=== PATIENT | female | born 1950 | race Two or more races ===

== ENCOUNTER → 2024-01-17 | Outpatient (CLI) | payer MEDICARE, OTHER, SELFPAY ==
--- NOTE | 2024-01-17 11:18 | XR_ITS ---
Examination: CT abdomen and pelvis without contrast. Coronal 3-D reconstructions. Sagittal 2-D reconstructions. Date and time of exam:January 17, 2024 1225 hours INDICATIONS: Abdominal pain and pelvic pressure beginning 2 days ago, history kidney stones COMPARISON: November 14, 2016 CTDI: vol (mGy): 8.75 DLP: (mGycm): 525 Technique: Axial images of the abdomen have been obtained, 3 mm slice thickness Intravenous contrast material has not been administered. Low dose protocols were performed. One or more of the following dose reduction techniques were used; automated exposure control, adjustment of the mA and/or KV according to patient size, use of iterative reconstruction technique. Findings: Fluid distended esophagus Small retrocardiac gastric hernia No focal liver or splenic lesions No extra hepatic biliary tract stones No renal or ureteral calculi, minimal right hydronephrosis Aorta normal size Normal appendix No bowel obstruction Abundant stool in the rectum No adnexal mass 4 mm calculus either right ureterovesical junction or immediately within the bladder axial image 191 Mild thickening of the urinary bladder wall up to 3 mm Moderate osteopenia IMPRESSION: Mild bilateral renal parenchymal scar formation Normal right hydronephrosis 4 mm calculus either right ureterovesical junction or immediately within urinary bladder
[2024-01-17 13:56] LABS: Collection Type, Urine Clean Catch
[2024-01-17 14:23] LABS: Basophils # (Auto) 0.1 Thou/mm3 (0.0-0.2); Basophils % (Auto) 1 % (0-2.5); Eosinophils # (Auto) 0.2 Thou/mm3 (0.0-0.5); Eosinophils % (Auto) 2 % (0-10); Hematocrit 39.4 % (36.0-46.0); Hemoglobin 13.4 g/dL (12.0-16.0); Immature Granulocytes % (Auto) 0 % (0-0); Immature Granulocytes Auto 0.04 Thou/mm3 (0.00-0.00); Lymphocytes % (Auto) 35 % (10-50); Mean Corpuscular Hemoglobin 28.9 pg (25.0-35.0); Mean Corpuscular Volume 85 fL (80-100); Monocytes # (Auto) 0.7 Thou/mm3 (0.0-0.8); Monocytes % (Auto) 6 % (0-12); Neutrophils # (Auto) 6.4 Thou/mm3 (1.8-7.7); Neutrophils % (Auto) 56 % (37-80); Nucleated Red Blood Cell % 0 /100 WBC (0); Platelet Count 462 Thou/mm3 (140-440); RDW Standard Deviation 41.2 fL (36.4-46.3); Red Blood Count 4.63 Miln/mm3 (4.00-5.20); White Blood Count 11.5 Thou/mm3 (3.6-11.0)
[2024-01-17 14:35] LABS: Glucose Estimated Average 117 mg/dL (80-131); Hemoglobin A1C 5.7 % Hgb (4.8-6.0)
[2024-01-17 14:39] LABS: Bacteria,Urine Rare; Bilirubin,Urine Negative (Negative); Blood,Urine Negative (Negative); Clarity,Urine Clear (Clear/Hazy); Color,Urine Yellow (Lt Yel-Yel); Culture Indicated,Urine Not Indicated; Glucose, Urine Negative (Negative); Hyaline Casts,Urine < 1 /hpf (0-1); Ketones,Urine Negative (Negative); Leukocyte Esterase,Urine Negative (Negative); Nitrite,Urine Negative (Negative); Protein,Urine Trace (Neg - Trace); RBC,Urine 5 /hpf (0-3); Specific Gravity,Urine 1.013 (1.001-1.035); Squamous Epithelial Cell,Urine < 1 /hpf (0-5); Urobilinogen,Urine Negative mg/dL (0.0-1.0); WBC,Urine 8 /hpf (0-5)
[2024-01-17 14:41] LABS: Alanine Aminotransferase 37 U/L (10-49); Albumin, Serum 4.5 gm/dL (3.4-4.8); Alkaline Phosphatase 127 U/L (46-116); Anion Gap 9 (7-16); Aspartate Amino Transferase 25 U/L (0-34); BUN/Creatinine Ratio 15 Ratio (12-20); Bilirubin,Total 0.6 mg/dL (0.3-1.2); Blood Urea Nitrogen 15 mg/dL (9-23); Calcium 9.9 mg/dL (8.3-10.6); Calcium (Corrected) 9.9 mg/dL (8.5-10.1); Chloride 103 mMol/L (98-107); Globulin 2.3 gm/dL (2.3-3.5); Glucose 102 mg/dL (74-106); Osmolality,Calculated 280 (275-295); Potassium 3.5 mMol/L (3.4-5.1); Sodium 140 mMol/L (136-145); Total Protein 6.8 gm/dL (5.7-8.2); eGFR 59 See Note
== END | disposition home or self-care (01) ==
LOC: CCTX 11:08 → COPL 12:49
PROVIDERS: PCP Family Medicine; Referring Provider Internal Medicine; Visit Provider Radiology Diagnostic Radiology
DX: N28.89 Other specified disorders of kidney and ureter (principal); N13.2 Hydronephrosis with renal and ureteral calculous obstruction; I10 Essential (primary) hypertension; R10.84 Generalized abdominal pain; E03.9 Hypothyroidism, unspecified; R10.2 Pelvic and perineal pain
CPT/HCPCS: 36415; 74176; 80053; 81001; 83036; 85025

== ENCOUNTER → 2024-05-07 | Outpatient (CLI) | payer MEDICARE, OTHER, SELFPAY ==
--- NOTE | 2024-05-07 10:36 | XR_ITS ---
Examination: CT abdomen without intravenous contrast. Coronal 2-D reconstructions. Sagittal 2-D reconstructions. Date and time of exam:May 07, 2024 1055 hours INDICATIONS: Right upper abdominal pain right lower abdominal pain beginning 2 weeks ago, history kidney stones CTDI: vol (mGy): 8.99 DLP: (mGycm): 299 Technique: Axial images of the abdomen have been obtained, 3 mm slice thickness, without intravenous contrast 2-D sagittal coronal reconstructions Low dose protocols were performed. One or more of the following dose reduction techniques were used; automated exposure control, adjustment of the mA and/or KV according to patient size, use of iterative reconstruction technique. Findings: No focal liver or splenic lesions Gallbladder not visualized Common hepatic duct 8 mm No pancreatic mass No adrenal mass Mild bilateral renal parenchymal scar formation No hydronephrosis Aorta normal size No bowel obstruction No pericecal inflammatory change IMPRESSION: Mild bilateral renal parenchymal scar formation No renal or ureteral calculi, no hydronephrosis
[2024-05-07 11:40] LABS: Collection Type, Urine Clean Catch
[2024-05-07 12:19] LABS: Basophils # (Auto) 0.1 Thou/mm3 (0.0-0.2); Basophils % (Auto) 1 % (0-2.5); Eosinophils # (Auto) 0.2 Thou/mm3 (0.0-0.5); Eosinophils % (Auto) 2 % (0-10); Hematocrit 37.9 % (36.0-46.0); Hemoglobin 12.9 g/dL (12.0-16.0); Immature Granulocytes % (Auto) 0 % (0-0); Immature Granulocytes Auto 0.05 Thou/mm3 (0.00-0.00); Lymphocytes # (Auto) 4.4 Thou/mm3 (1.0-4.8); Lymphocytes % (Auto) 39 % (10-50); Mean Corpuscular Volume 85 fL (80-100); Monocytes # (Auto) 0.9 Thou/mm3 (0.0-0.8); Monocytes % (Auto) 8 % (0-12); Neutrophils # (Auto) 5.7 Thou/mm3 (1.8-7.7); Neutrophils % (Auto) 51 % (37-80); Nucleated Red Blood Cell % 0 /100 WBC (0); Platelet Count 474 Thou/mm3 (140-440); RDW Standard Deviation 41.6 fL (36.4-46.3); Red Blood Count 4.45 Miln/mm3 (4.00-5.20); White Blood Count 11.3 Thou/mm3 (3.6-11.0)
[2024-05-07 12:52] LABS: Bacteria,Urine Rare; Bilirubin,Urine Negative (Negative); Blood,Urine Negative (Negative); Calcium Oxalate Crystals,Urine 4+; Clarity,Urine Turbid (Clear/Hazy); Color,Urine Drk-Yellow (Lt Yel-Yel); Culture Indicated,Urine Not Indicated; Glucose, Urine Negative (Negative); Hyaline Casts,Urine < 1 /hpf (0-1); Ketones,Urine Trace (Negative); Leukocyte Esterase,Urine Negative (Negative); Nitrite,Urine Negative (Negative); Protein,Urine 1+ (Neg - Trace); RBC,Urine 10 /hpf (0-3); Specific Gravity,Urine 1.032 (1.001-1.035); Squamous Epithelial Cell,Urine 1 /hpf (0-5); WBC,Urine 2 /hpf (0-5)
[2024-05-07 12:55] LABS: Alanine Aminotransferase 30 U/L (10-49); Albumin, Serum 4.3 gm/dL (3.4-4.8); Albumin/Globulin Ratio 1.7 (1.2-2.2); Alkaline Phosphatase 118 U/L (46-116); Anion Gap 9 (7-16); Aspartate Amino Transferase 25 U/L (0-34); BUN/Creatinine Ratio 17 Ratio (12-20); Bilirubin,Total 0.3 mg/dL (0.3-1.2); Blood Urea Nitrogen 12 mg/dL (9-23); Calcium 9.8 mg/dL (8.3-10.6); Calcium (Corrected) 9.8 mg/dL (8.5-10.1); Chloride 106 mMol/L (98-107); Creatinine (Component) 0.7 mg/dL (0.6-1.3); Globulin 2.6 gm/dL (2.3-3.5); Glucose 109 mg/dL (74-106); Osmolality,Calculated 285 (275-295); Potassium 3.5 mMol/L (3.4-5.1); Sodium 143 mMol/L (136-145); Total Protein 6.9 gm/dL (5.7-8.2); eGFR > 60 See Note
== END | disposition home or self-care (01) ==
LOC: CCTX 10:21 → COPL 11:12
PROVIDERS: PCP Internal Medicine; Referring Provider Internal Medicine; Visit Provider Internal Medicine
DX: N28.89 Other specified disorders of kidney and ureter (principal); R10.31 Right lower quadrant pain; Z87.442 Personal history of urinary calculi
CPT/HCPCS: 36415; 74150; 80053; 81001; 85025

== ENCOUNTER → 2024-05-15 | Outpatient (CLI) | payer MEDICARE, OTHER, SELFPAY ==
--- NOTE | 2024-05-15 13:44 | XR_ITS ---
Examination: Lumbar spine, 5 views Technique: Lumbar spine AP, lateral, coned lateral lower lumbar spine, bilateral obliques 5 views Exam date and time: March 17, 2024, 1358 hrs. Indications: Low back pain beginning 3 weeks ago. Findings: Moderate osteopenia Moderate diffuse facet arthropathy. No lumbar fracture. Mild disc narrowing posteriorly L5-S1. Mild lumbar spondylosis. Impression: Mild degenerative disc disease L5-S1.
--- NOTE | 2024-05-15 13:44 | XR_ITS ---
Examination: Thoracic spine 3 views Technique: AP, lateral, coned lateral upper dorsal spine 3 views Date and time: May 15, 2024 at 1409 hrs. Indications: Upper back pain beginning 3 weeks ago. Findings: Significant osteopenia. No acute thoracic fracture. Mild diffuse thoracic disc narrowing. No pulmonary obstruction Impression: Mild thoracic degenerative disc disease
[2024-05-15 14:17] LABS: Collection Type, Urine Clean Catch
[2024-05-15 16:09] LABS: Bilirubin,Urine Negative (Negative); Blood,Urine Negative (Negative); Calcium Oxalate Crystals,Urine 4+; Color,Urine Drk-Yellow (Lt Yel-Yel); Glucose, Urine Negative (Negative); Ketones,Urine Trace (Negative); Leukocyte Esterase,Urine Negative (Negative); Nitrite,Urine Negative (Negative); Protein,Urine 1+ (Neg - Trace); RBC,Urine 11 /hpf (0-3); Specific Gravity,Urine 1.031 (1.001-1.035); Squamous Epithelial Cell,Urine < 1 /hpf (0-5); Uric Acid Crystals,Urine 3+; WBC,Urine 6 /hpf (0-5)
[2024-05-15 16:34] LABS: Clarity,Urine Turbid (Clear/Hazy)
== END | disposition home or self-care (01) ==
PROVIDERS: PCP Internal Medicine; Referring Provider Internal Medicine; Visit Provider Internal Medicine
DX: M51.34 Other intervertebral disc degeneration, thoracic region (principal); M51.379 Other intervertebral disc degeneration, lumbosacral region without mention of lumbar back pain or lower extremity pain
CPT/HCPCS: 72072; 72110; 81001; 87086

== ENCOUNTER → 2024-05-20 | Outpatient (CLI) | payer MEDICARE, OTHER, SELFPAY ==
[2024-05-20 12:24] LABS: Basophils # (Auto) 0.1 Thou/mm3 (0.0-0.2); Basophils % (Auto) 1 % (0-2.5); Eosinophils # (Auto) 0.2 Thou/mm3 (0.0-0.5); Eosinophils % (Auto) 2 % (0-10); Hematocrit 38.7 % (36.0-46.0); Hemoglobin 12.9 g/dL (12.0-16.0); Immature Granulocytes % (Auto) 0 % (0-0); Immature Granulocytes Auto 0.04 Thou/mm3 (0.00-0.00); Lymphocytes % (Auto) 36 % (10-50); Mean Corpuscular HGB Conc 33.3 g/dl (31.0-37.0); Mean Corpuscular Hemoglobin 28.9 pg (25.0-35.0); Mean Corpuscular Volume 87 fL (80-100); Monocytes # (Auto) 0.8 Thou/mm3 (0.0-0.8); Monocytes % (Auto) 7 % (0-12); Neutrophils # (Auto) 6.2 Thou/mm3 (1.8-7.7); Neutrophils % (Auto) 54 % (37-80); Nucleated Red Blood Cell % 0 /100 WBC (0); Platelet Count 467 Thou/mm3 (140-440); RDW Standard Deviation 41.9 fL (36.4-46.3); Red Blood Count 4.46 Miln/mm3 (4.00-5.20); White Blood Count 11.3 Thou/mm3 (3.6-11.0)
[2024-05-20 12:55] LABS: Alanine Aminotransferase 35 U/L (10-49); Albumin, Serum 4.3 gm/dL (3.4-4.8); Albumin/Globulin Ratio 1.9 (1.2-2.2); Alkaline Phosphatase 107 U/L (46-116); Amylase 86 U/L (30-118); Anion Gap 9 (7-16); Aspartate Amino Transferase 26 U/L (0-34); BUN/Creatinine Ratio 13 Ratio (12-20); Bilirubin,Total 0.4 mg/dL (0.3-1.2); Blood Urea Nitrogen 10 mg/dL (9-23); Calcium 10.1 mg/dL (8.3-10.6); Calcium (Corrected) 10.1 mg/dL (8.5-10.1); Carbon Dioxide 28.8 mMol/L (20.0-31.0); Chloride 103 mMol/L (98-107); Creatine Kinase 207 U/L (34-171); Creatinine (Component) 0.8 mg/dL (0.6-1.3); Globulin 2.3 gm/dL (2.3-3.5); Glucose 105 mg/dL (74-106); LDH (Lactate Dehydrogenase) 173 U/L (120-246); Lipase 33 U/L (12-53); Osmolality,Calculated 280 (275-295); Potassium 4.5 mMol/L (3.4-5.1); Sodium 141 mMol/L (136-145); Thyroid Stimulating Hormone 0.06 uIU/mL (0.55-4.78); Total Protein 6.6 gm/dL (5.7-8.2); eGFR > 60 See Note
== END | disposition home or self-care (01) ==
LOC: COPL 11:32
PROVIDERS: PCP Internal Medicine; Referring Provider Internal Medicine; Visit Provider Internal Medicine
DX: E03.9 Hypothyroidism, unspecified (principal); K21.9 Gastro-esophageal reflux disease without esophagitis; R10.84 Generalized abdominal pain
CPT/HCPCS: 36415; 80053; 82150; 82550; 83615; 83690; 84443; 85025

== ENCOUNTER 2025-01-10 15:04 | Emergency (ER) | payer MEDICARE, OTHER, SELFPAY ==
[2025-01-10 15:06] VITALS: PULSE 88; RESP 18; O2SAT 98; BMI 34.3
[2025-01-10 15:13] VITALS: BP 119/70; PULSE 72; RESP 18; TEMP 36.8; O2SAT 98
--- NOTE | 2025-01-10 15:19 | EKG_ITS ---
[facility] Test Date: 2025-01-10 Pat Name: NADINE JACKSON Department: Room: - Gender: Female [employer]ing [employer] Tender: : 1950 Requested By: Roberta Cheatham Order Number: [id number] Reading MD: Roberta Cheatham Measurements Intervals [place] Rate: 72 P: 80 HI: 191 QRS: -5 QRSD: 85 T: 50 QT: 369 QTc: 406 Interpretive Statements SINUS RHYTHM MINIMAL VOLTAGE CRITERIA FOR LVH, CONSIDER NORMAL VARIANT [MEETS CRITERIA IN ONE OF: R(aVL), S(V1), R(V5), R(V5/V6)+S(V1)] Compared to ECG 12/12/2022 20:09:03 T-wave abnormality no longer present /store/S0/[id number]/ecg/[id number].pdf
--- NOTE | 2025-01-10 15:24 | PD.EDFALL ---
ED Fall Injury RME/HPI General Chief Complaint: Fall Stated Complaint: FALL Time Seen by Provider: 01/10/25 15:18 Arrival date/time: 01/10/25 15:04 RME / HPI RME / HPI Narrative: Patient is a 74-year-old female with a past medical history of hypertension, hypothyroidism, GERD, Depression who presented to the emergency room via ambulance with chief complain of mechanical fall secondary to tripping on garbage can lid outside. Patient denied dizziness prior to fall. Denied loss of consiouness. Denied chest pain or shortness of breath. Patient denied seizure like activity. Denied head trauma. When patine fell, landed on knees bilaterally. Denied anticoagulations. Related Data Home Medications ?Medication ?Instructions ?Recorded ?Confirmed amlodipine 5 mg tablet (Norvasc) 5 mg PO QDAY #0 tabs 09/26/03/23/20 levothyroxine 88 mcg tablet 88 mcg PO QDAY #0 tabs 02/15/15 03/23/20 paroxetine HCl 20 mg tablet 20 mg PO QDAY 03/22/20 03/23/20 Previous Rx's ?Medication ?Instructions ?Recorded ibuprofen 600 mg tablet 600 mg PO Q8H PRN pain #30 tabs 04/19/20 pantoprazole 20 mg tablet,delayed 20 mg PO QDAY #20 tabs 12/12/22 release (Protonix) sucralfate 1 gram tablet (Carafate) 1 g PO BID #14 tabs 12/12/22 hydrocodone 5 mg-acetaminophen 300 1 tab PO QDAY PRN pain 3 days #3 01/10/25 mg tablet tabs Allergies Allergy/AdvReac Type Severity Reaction Status Date / Time No Known Allergies Allergy Verified 04/19/20 11:34 Review of Systems Review of Systems Narrative Review of Systems: General appearance: NO weight change, NO fatigue, NO weakness, NO fever, NO chills, NO night sweats, No cough, Mechanical Fall Skin: NO rash, NO itching, NO sores, NO moles HEENT: NO Trauma, NO nausea, NO vomiting, NO visual changes, NO blurry vision, NO double vision, NO tinnitus, NO vertigo, NO ear discharge, NO rhinorrhea, NO stuffiness, NO sneezing, NO allergy, NO epistaxis. NO Hoarseness, NO sore throat, NO swollen neck. Cardiac: NO Palpitations, NO dyspnea on exertion, NO orthopnea, NO paroxysmal nocturnal dyspnea, NO edema Respiratory: NO Shortness of Breath, NO Wheezing, NO Cough, NO Sputum, NO hemoptysis GI:NO appetite, NO nausea, NO vomiting, NO dysphagia, NO changes in bowel frequency, NO stool color, NO diarrhea, NO constipation, NO hemetemesis, NO hemorrhoids, NO melena, NO hematechezia, NO abdominal pain, NO jaundice Renal: NO frequency, NO hesitancy, NO urgency, NO hematuria, NO nocturia, NO incontinence MSK: NO muscle weakness, NO gout, NO arthritis, NO muscle stiffness Neuro: NO headaches, NO tremors, NO weakness, NO paralysis, NO seizures, NO loss of consciousness, NO numbness. Hem: NO anemia, NO easy bruising/bleeding, NO petechiae, NO purpura Endo: NO heat/cold intolerance, NO excessive sweating, NO polyuria, NO polydipsia, NO polyphagia, NO thyroid problems, NO diabetes Pysch: NO mood, NO anxiety, NO depression ED Exam Narrative Physical exam: General Appearance: Alert & Oriented X3, well-nourished female who is lying in bed in bed, mild distress secondary to bilateral knee pain. HEENT: Skull symmetrical and atraumatic. Conjunctivae pin and moist. Pupils equal, round, reactive to light and accommodation (PERRL). External ear without lesion or discharge. Straight, nares patient, mucosa pink, no discharge. Cardio: Normal Rate and Rhythm with S1 and S2 heart sounds. No murmurs or extra heart sounds auscultated. No bruits on carotid auscultation. No peripheral edema or cyanosis. Lungs: Symmetric with good expansion. Chest and back non-tender. Breath sounds vesicular without crackles, wheezing or rhonchi Abdomen: Non-tender, Non-distended, Normal Reactive Bowel Sounds Neuro: Alert, cooperative, oriented to person, place, and time. Speech clear. CN grossly intact. Upper motor strength 5/5 and Lower motor strength 5/5. Sensation intact. Course Quality Measures none Orders Category Date Time Status [facility] Q4H START 00 Care 01/10/25 15:25 Active Continuous Pulse Oximetry NOW Care 01/10/25 15:25 Completed Orthostatic Vitals X1 Care 01/10/25 15:19 Active Straight [In and Out Catheter] X1 Care 01/10/25 15:53 Active XR chest 1V portable Stat Exams 01/10/25 15:26 Taken XR femur BI min 2V Stat Exams 01/10/25 15:50 Taken XR tibia fibula BI 2V Stat Exams 01/10/25 15:52 Taken Alcohol, Urine Stat Lab 01/10/25 16:40 Completed CBC Stat Lab 01/10/25 15:45 Completed CMP [Comprehensive Metabolic Panel] Stat Lab 01/10/25 15:45 Completed Drug Screen,Urine Stat Lab 01/10/25 16:40 Completed Free T3 Stat Lab 01/10/25 15:45 Completed Free T4 (Free Thyroxine) Stat Lab 01/10/25 15:45 Completed Magnesium Stat Lab 01/10/25 15:45 Completed TSH [Thyroid Stimulating Hormone] Stat Lab 01/10/25 15:45 Completed Troponin I Stat Lab 01/10/25 15:45 Completed Urinalysis, C/S if Indicated Stat Lab 01/10/25 16:40 Completed Morphine* Inj Med 01/10/25 15:31 Discontinued 2 mg IVP Q1H ONE EKG (RT) Stat RT 01/10/25 15:19 Draft Vital Signs Vital signs: Vital Signs Temperature 98.2 F 01/10/25 15:13 Pulse Rate 72 01/10/25 15:13 Respiratory Rate 18 01/10/25 15:13 Blood Pressure 119/70 01/10/25 15:13 Pulse Oximetry (%) 98 01/10/25 15:13 Oxygen Delivery Method Room Air 01/10/25 15:13 Fall Patient data External records reviewed:: [facility] previous records and EMS form Clinical information provided by:: patient Social determinants that could affect healthcare access:: none Patient has the following chronic illnesses:: HTN Hypothyroidism How is presenting disease/condition affected by chronic disease/condition?: uneffected by (by chronic disease ) Evaluation data The following diagnostics were reviewed and interpreted by me:: lab results, radiology exam(s) and EKG tracing(s) Lab and/or radiology exams considered but not ordered:: None Interpretation Summary: Patient is a 74-year-old female with a past medical history of hypertension hypothyroidism GERD and depression who presented to the emergency room with bilateral knee pain and hip pain after experiencing mechanical fall. CBC showed mild leukocytosis 11.5 likely reactive CMP-electrolytes within normal limit and TSH 0.07 with free T4 at 1.6 likely 7 clinical hypothyroidiss. UA negative Chest x-ray: no rib fractures noted Femur x-ray and Fibial/Fibula negative for any acute processes - The patient's plan was discussed with attending Dr. Elizabeth Cheatham MD PGY2 Internal Medicine Medications / Prescriptions Medications or Prescriptions considered but not ordered:: none Medication administrations:: Medication Administration History Discontinued Medications Morphine Sulfate (Morphine Sulf Inj 4 Mg/Ml Vial) 2 mg IVP Q1H ONE Stop: 01/10/25 15:32 Last Admin: 01/10/25 16:36 Dose: Not Given Documented By: JT Non-Admin Reason: Patient Refused same as above Consultations Consultation(s) initiated? (list below): No Diagnosis Fall Differential Diagnosis: syncope, concussion without loss of consciousness and other (mechanical fall ) Most likely diagnosis given after review of the tests above:: Mechanical fall ground level fall secondary to tripping on an object in patient's yard. No electrolyte abnormalities. Subclinical hypothyroidism noted please, follow up with primary care provider. EKG within normal limits. No cardiac arrythmias noted on EKG. No acute fractures noted on images of femur x-ray and tibia/Fibula. Admission Indicated Admission indicated?: not indicated Explain why admission is indicated or not indicated:: No acute fractures, no admission indicated. Admission Request Was there a request for admission?: No Disposition Plan Disposition Plan: Discharge Discharge Attestation Discharge Attestation: The patient and all family members were given an opportunity to ask questions and understood the discharge instructions. Discharge instructions specifically effects, indications for sooner follow up or return to the emergency department, and the expected course of current diagnosis. Patient condition: Stable Discharge Plan Plan Patient Disposition: HOME (Self Care) Patient condition on transfer: Stable Health Concerns: Instructions: -You experienced a mechanical ground level fall no fractures noted on images -Hydrocodone-Acetaminophen 5-300 mg once daily as needed for pain, please follow up with your primary care provider. --Please follow up with your primary care provider within one week of discharge -If your symptoms worsen,please seek immediate medical attention and return to your nearest emergency room -If you do not have a primary care provider, you may follow up at the [facility] at [address], [place] [address], Prescriptions/Referrals Prescriptions/Med Rec: New hydrocodone-acetaminophen 5-300 mg tablet 1 tab PO QDAY MDD 1 tablet PRN (Reason: pain) 3 Days Qty: 3 0RF Continued amlodipine [Norvasc] 5 MG tablet 5 mg PO QDAY Qty: 0 levothyroxine 88 mcg Tablet 88 mcg PO QDAY Qty: 0 paroxetine HCl 20 mg Tablet 20 mg PO QDAY ibuprofen 600 mg tablet 600 mg PO Q8H PRN (Reason: pain) Qty: 30 0RF pantoprazole [Protonix] 20 mg tablet,delayed release (DR/EC) 20 mg PO QDAY Qty: 20 0RF sucralfate [Carafate] 1 gram tablet 1 g PO BID Qty: 14 0RF Discontinued rabeprazole [AcipHex] 20 MG tablet,delayed release (DR/EC) 20 mg PO QAM Qty: 0 cephalexin 500 mg capsule 500 mg PO TID Qty: 15 0RF cephalexin 500 mg capsule 500 mg PO TID Qty: 21 0RF Referrals: Brian Valencia MD [Primary Care Provider, Family Practice] - In 1 week Problem List Clinical Impression: Accident due to mechanical fall without injury Patient/Caregiver Discharge Instructions Print Language: Slovak Stand Alone Forms: Kayla Award Info., Patient Portal Info Letter
--- NOTE | 2025-01-10 15:26 | XR_ITS ---
EXAMINATION: AP chest single view TECHNIQUE: AP portable semiupright chest single view Date and time: January 10, 2025, 1551 hours, comparison July 23, 2021 INDICATIONS: Chest pain today after falling. FINDINGS: Mild prominence left ventricle Ectatic thoracic aorta. No pneumothorax or pulmonary contusion. Clavicles ribs appear intact IMPRESSION: No pneumothorax or pulmonary contusion
[2025-01-10 15:42] VITALS: PULSE 76
--- NOTE | 2025-01-10 15:50 | XR_ITS ---
EXAMINATION: Bilateral femur 4 views TECHNIQUE: AP lateral right and left femur 4 views Date and time: January 10, 2025, 1554 hours INDICATIONS: Patient fell today with injury to the right and left femur, bilateral femur pain. FINDINGS: No acute right or left hip fracture Shafts of the right and left femur appear intact IMPRESSION: No acute fracture
--- NOTE | 2025-01-10 15:52 | XR_ITS ---
EXAMINATION: Right and left tibia fibula 4 views TECHNIQUE: AP lateral right and left tibia fibula 4 views Date and time: January 10, 2025, 1555 hours INDICATIONS: Patient fell today with injury to both lower legs, lower leg pain. FINDINGS: No acute fracture. No dislocation No foreign body IMPRESSION: No fracture or dislocation
[2025-01-10 16:03] LABS: Basophils # (Auto) 0.1 Thou/mm3 (0.0-0.2); Basophils % (Auto) 1 % (0-2.5); Eosinophils # (Auto) 0.2 Thou/mm3 (0.0-0.5); Eosinophils % (Auto) 2 % (0-10); Hematocrit 38.6 % (36.0-46.0); Hemoglobin 13.0 g/dL (12.0-16.0); Immature Granulocytes Auto 0.03 Thou/mm3 (0.00-0.00); Lymphocytes # (Auto) 3.7 Thou/mm3 (1.0-4.8); Lymphocytes % (Auto) 32 % (10-50); Mean Corpuscular HGB Conc 33.7 g/dl (31.0-37.0); Mean Corpuscular Hemoglobin 28.8 pg (25.0-35.0); Mean Corpuscular Volume 86 fL (80-100); Monocytes # (Auto) 0.8 Thou/mm3 (0.0-0.8); Monocytes % (Auto) 7 % (0-12); Neutrophils # (Auto) 6.8 Thou/mm3 (1.8-7.7); Neutrophils % (Auto) 59 % (37-80); Nucleated Red Blood Cell # 0.00 Thou/mm3 (0.00-0.00); Nucleated Red Blood Cell % 0 /100 WBC (0); Platelet Count 441 Thou/mm3 (140-440); RDW Standard Deviation 41.7 fL (36.4-46.3); Red Blood Count 4.51 Miln/mm3 (4.00-5.20); White Blood Count 11.5 Thou/mm3 (3.6-11.0)
[2025-01-10 16:27] LABS: Alanine Aminotransferase 21 U/L (10-49); Albumin, Serum 4.6 gm/dL (3.4-4.8); Albumin/Globulin Ratio 2.3 (1.2-2.2); Alkaline Phosphatase 109 U/L (46-116); Anion Gap 8 (7-16); Aspartate Amino Transferase 18 U/L (0-34); BUN/Creatinine Ratio 13 Ratio (12-20); Bilirubin,Total 0.3 mg/dL (0.3-1.2); Blood Urea Nitrogen 10 mg/dL (9-23); Calcium 9.7 mg/dL (8.3-10.6); Calcium (Corrected) 9.7 mg/dL (8.5-10.1); Carbon Dioxide 27.3 mMol/L (20.0-31.0); Chloride 106 mMol/L (98-107); Creatinine (Component) 0.8 mg/dL (0.6-1.3); Estimated Creatinine Clearance 54.4 mL/min (>60); Globulin 2.0 gm/dL (2.3-3.5); Glucose 146 mg/dL (74-106); Magnesium 1.9 mg/dL (1.6-2.6); Osmolality,Calculated 283 (275-295); Potassium 3.4 mMol/L (3.4-5.1); Sodium 141 mMol/L (136-145); Thyroid Stimulating Hormone 0.07 uIU/mL (0.55-4.78); Total Protein 6.6 gm/dL (5.7-8.2); Troponin I < 0.020 ng/mL (0.0-0.045); eGFR > 60 See Note
[2025-01-10 16:56] LABS: Collection Type, Urine Clean Catch; WBC,Urine 0 /hpf (0-5)
[2025-01-10 17:13] LABS: Alcohol, Urine Negative (Negative); Amphetamine/Methamp Scrn,U Negative (Negative); Barbiturate Screen,Urine Negative (Negative); Benzodiazepines Screen,Urine Negative (Negative); Benzoylecgonine Screen, Ur Negative (Negative); Fentanyl Screen,Urine Negative (Negative); Opiate Screen,Urine Negative (Negative); THC Screen,Urine Negative (Negative)
[2025-01-10 17:18] LABS: Free T3 2.8 pg/mL (2.3-4.2); Free T4 (Free Thyroxine) 1.62 ng/dL (0.89-1.76)
[2025-01-10 17:24] VITALS: BP 150/53; PULSE 71; RESP 16; TEMP 36.3; O2SAT 97
[2025-01-10 17:30] LABS: Bacteria,Urine Rare; Bilirubin,Urine Negative (Negative); Blood,Urine Negative (Negative); Clarity,Urine Clear (Clear/Hazy); Color,Urine Lt-Yellow (Lt Yel-Yel); Culture Indicated,Urine Not Indicated; Glucose, Urine Negative (Negative); Ketones,Urine Negative (Negative); Leukocyte Esterase,Urine Negative (Negative); Nitrite,Urine Negative (Negative); PH,Urine 6.5 (5.0-7.0); Protein,Urine Negative (Neg - Trace); RBC,Urine < 1 /hpf (0-3); Specific Gravity,Urine 1.007 (1.001-1.035); Squamous Epithelial Cell,Urine < 1 /hpf (0-5); Urobilinogen,Urine Negative mg/dL (0.0-1.0)
[2025-01-10 18:30] VITALS: BP 138/59; PULSE 78; RESP 17; TEMP 36.8; O2SAT 98
--- NOTE | 2025-01-10 19:03 | PRELIM_ITS ---
Radiograph of the chest (single view). January 10, 2025 1548 hours Clinical history: rib pain Comparison: None Findings: The lungs are clear. There is no pleural effusion or pneumothorax. The cardiomediastinal silhouette is normal. There is no evidence of rib fracture. The osseous structures are intact. Impression: No radiographic evidence of thoracic injury. Report Electronically Signed By: Maverick Joy 01/10/2025 7:02:25 PM [EST]
--- NOTE | 2025-01-10 19:39 | PRELIM_ITS ---
Radiographs of bilateral tibia and fibula (2 views) January 10, 2025 1553 hours Clinical history: Injury Comparison: None Findings: There is a linear horizontal sclerotic lucency in the distal tibia. There is no evidence of dislocation. Bone density and configuration are normal. The soft tissues are unremarkable. Impression: A linear horizontal sclerotic lucency in the distal tibia, which may represent a stress fracture. Recommend clinical correlation. Report Electronically Signed By: Maverick Joy 01/10/2025 7:38:34 PM [EST]
--- NOTE | 2025-01-10 19:54 | PRELIM_ITS ---
Radiographs of both femurs (2 views). January 10, 2025 1553 hours Clinical history: Injury Comparison: None Findings: There is no evidence of fracture or dislocation. No focal or diffuse bony abnormality is identified. Calcific densities are seen in the pelvis, likely representing phleboliths. Impression: No fracture or dislocation. Report Electronically Signed By: Maverick Joy 01/10/2025 7:53:31 PM [EST]
== END 2025-01-10 18:30 | disposition home or self-care (01) ==
PROVIDERS: Emergency Provider Emergency Medicine; PCP Family Medicine
DX: M25.561 Pain in right knee (principal); M25.562 Pain in left knee; W01.0XXA Fall on same level from slipping, tripping and stumbling without subsequent striking against object, initial encounter
CPT/HCPCS: 36415; 71045; 73552; 73590; 80053; 80307; 80320; 81001; 83735; 84439; 84443; 84481; 84484; 84703; 85025; 93005; 99284; G0480

== ENCOUNTER 2025-02-07 14:13 | Emergency (ER) | payer MEDICARE, OTHER, SELFPAY ==
[2025-02-07 14:31] VITALS: BP 135/69; PULSE 70; RESP 18; TEMP 36.9; O2SAT 100
--- NOTE | 2025-02-07 14:51 | XR_ITS ---
Examination: CT chest, without intravenous contrast. Sagittal and coronal 2-D reconstructions. Exam date and time: February 07, 2025, 1538 hours INDICATIONS: Patient fell a couple weeks ago with injury of the chest with back pain CTDI:vol (mGy) 11.3 DLP: (mGycm) 385 Technique: Multiple 3.0 mm axial sections of the chest to been obtained. Bone and lung density settings are obtained. Sagittal and coronal 2-D reconstructions have been obtained. Low dose protocols were performed. One or more of the following dose reduction techniques were used; automated exposure control, adjustment of the mA and/or KV according to patient size, use of iterative reconstruction technique. Findings: Thoracic aorta pulmonary arteries intact No hemopericardium No pneumothorax pulmonary contusion or hemothorax Severe osteopenia Sternal segments appear intact Thoracic vertebral bodies intact no compression fractures in satisfactory alignment posterior spinous processes No acute rib fractures Clavicles appear intact No visualized liver or splenic or renal laceration IMPRESSION: Thoracic aorta pulmonary arteries intact No hemopericardium, pneumothorax, pulmonary contusion or hemothorax Osseous structures including the thoracic vertebral bodies appear intact
[2025-02-07] MEDS: LIDOCAINE 5% 1 PATCH 2 PATCH TOP (15:05)
--- NOTE | 2025-02-07 15:13 | PD.EDFALL ---
ED Fall Injury RME/HPI General Chief Complaint: Fall Stated Complaint: Right rib pain X 3 weeks, worse today Time Seen by Provider: 02/07/25 14:50 Arrival date/time: 02/07/25 14:13 RME / HPI RME / HPI Narrative: See MDM for Dr. Johnson's HPI Documentation. Related Data Home Medications ?Medication ?Instructions ?Recorded ?Confirmed amlodipine 5 mg tablet (Norvasc) 5 mg PO QDAY #0 tabs 09/26/13 03/23/20 levothyroxine 88 mcg tablet 88 mcg PO QDAY #0 tabs 02/15/15 03/23/20 paroxetine HCl 20 mg tablet 20 mg PO QDAY 03/22/20 03/23/20 Previous Rx's ?Medication ?Instructions ?Recorded ibuprofen 600 mg tablet 600 mg PO Q8H PRN pain #30 tabs 04/19/20 pantoprazole 20 mg tablet,delayed 20 mg PO QDAY #20 tabs 12/12/22 release (Protonix) sucralfate 1 gram tablet (Carafate) 1 g PO BID #14 tabs 12/12/22 Allergies Allergy/AdvReac Type Severity Reaction Status Date / Time No Known Allergies Allergy Verified 02/07/25 14:20 Review of Systems Review of Systems Systems Reviewed: All systems reviewed, normal except as documented Past Medical History Past Medical History NEUROLOGIC: Positive Neurological Disorders and Head Trauma CARDIAC: Positive Cardiac Disorders, Hypercholesterolemia and Hypertension GASTROINTESTINAL: Positive Gastrointestinal Disorders, Hepatitis, Gall Bladder Disease, Gastroesophageal Reflux Disease and Obesity GENITOURINARY: Positive Genitourinary Disorders and Kidney Stones REPRODUCTIVE: Positive Previous Pregnancies MUSCULOSKELETAL: Positive Musculoskeletal Disorders and Arthritis ENT: Positive Deafness and Head Trauma ENDOCRINE: Positive Endocrine Disorders and Hypothyroidism PSYCHO/SOCIAL: Positive Psychiatric Problems, Depression and Anxiety OTHER HISTORY: Positive Shingles, Anesthesia Reactions, Chicken Pox, Measles and Mumps Family History FAMILY HISTORY: Positive Family Cancer and Family Surgery Surgical History SURGICAL: Positive Thyroidectomy, Hysterectomy, Tubal Ligation and Section Social History SMOKING STATUS: Never smoker SUBSTANCE USE: does not use ALCOHOL: Never ED Exam Narrative Physical exam: See MDM for Dr. Johnson's HPI Documentation. Course Quality Measures none Orders Category Date Time Status CT chest wo con Stat Exams 02/07/25 14:51 Completed Lidocaine 5% Patch Med 02/07/25 14:50 Discontinued 2 patch TOP X1 ONE Vital Signs Vital signs: Vital Signs Temperature 98.4 F 02/07/25 14:31 Pulse Rate 70 02/07/25 14:31 Respiratory Rate 18 02/07/25 14:31 Blood Pressure 135/69 H 02/07/25 14:31 Pulse Oximetry (%) 100 02/07/25 14:31 Oxygen Delivery Method Room Air 02/07/25 14:31 Fall MDM Narrative MDM Narrative:: This section includes all my notes and documentations, including HPI, PE, and ED course. Bob Johnson MD HPI: 75-year-old female here with continued right-sided chest pain after falling several days ago. No shortness of breath. No other complaints. ROS: All negative except as documented in HPI. Physical Exam: General: Alert and oriented. No acute distress. Eyes: Conjunctivae and lids clear. EOMI. PERRL. ENT: No signs of head trauma. Neck: Supple. No tenderness. Heart: RRR. Lungs: No respiratory distress. Good air movement. No rhonchi, wheezing, rales. Chest: Tenderness of the right sided ribs laterally with palpation. Abdomen: Soft and nontender. Normal bowel sounds. No distension. No rebound or guarding. Back: No tenderness. Skin: Warm and dry. Neuro: Alert and oriented X 3. Cranial Nerves II-XII grossly intact. No peripheral motor deficits. Musculoskeletal: All major joints and bones are not tender with no limited ROM. I reviewed all diagnostic test results: My review of the chest CT report is NAD. At this point, diagnoses include: Rib contusion Treatment here included: Lidocaine patches She started to feel better. Recommended supportive care. Based on my best medical judgment, made decision no further evaluation or treatment indicated at this time. Patient understands and agrees to the discharge instructions customized and printed, see below. Discharge instructions from Dr. Johnson: -- Unfortunately, you sustained right rib contusions. -- It's going to take a couple of months to heal. -- Try to slowly resume your normal activity despite the pain. Prolonged inactivity is terrible for your body. -- Apply heat throughout the day as much as possible to help promote blood flow needed for healing. -- Ibuprofen and Tylenol and topical lidocaine patches as needed. -- Try propping herself up on pillows. -- Despite the pain, take at least two very deep breaths every hour you are awake.? To keep your lungs inflated. -- See your private doctor next week if not significantly better. -- Seek immediate medical care with intolerable pain, fever, shortness of breath, or with any concerns. Bob Johnson MD Patient data External records reviewed:: [facility] previous records Clinical information provided by:: patient Social determinants that could affect healthcare access:: none Patient has the following chronic illnesses:: Hypertension, hypercholesterolemia, GERD, kidney Stones, arthritis, hypothyroidism, thyroidectomy, hysterectomy, tubal ligation, and section. How is presenting disease/condition affected by chronic disease/condition?: exacerbated by Evaluation data The following diagnostics were reviewed and interpreted by me:: lab results and radiology exam(s) Lab and/or radiology exams considered but not ordered:: none Interpretation Summary: I reviewed all diagnostic test results: My review of the chest CT report is NAD. Medications / Prescriptions Medications or Prescriptions considered but not ordered:: none Medication administrations:: Medication Administration History Discontinued Medications Lidocaine (Lidocaine 5% 1 Patch) 2 patch TOP X1 ONE Stop: 02/07/25 14:51 Last Admin: 02/07/25 15:05 Dose: 2 patch Documented By: LT Lidocaine patches Consultations Consultation(s) initiated? (list below): No Diagnosis Fall Differential Diagnosis: other (Chest contusion/fracture/pneumothorax) Most likely diagnosis given after review of the tests above:: Contusion of rib on right side Admission Indicated Admission indicated?: not indicated Explain why admission is indicated or not indicated:: With significant improvement and no condition needing emergent intervention, there was no indication for admission. Admission Request Was there a request for admission?: No Disposition Plan Disposition Plan: Discharge Discharge Attestation Discharge Attestation: The patient and all family members were given an opportunity to ask questions and understood the discharge instructions. Discharge instructions specifically effects, indications for sooner follow up or return to the emergency department, and the expected course of current diagnosis. Patient condition: Stable Discharge Plan Plan Patient Disposition: HOME (Self Care) Prescriptions/Referrals Prescriptions/Med Rec: No Action amlodipine [Norvasc] 5 MG tablet 5 mg PO QDAY Qty: 0 levothyroxine 88 mcg Tablet 88 mcg PO QDAY Qty: 0 paroxetine HCl 20 mg Tablet 20 mg PO QDAY ibuprofen 600 mg tablet 600 mg PO Q8H PRN (Reason: pain) Qty: 30 0RF pantoprazole [Protonix] 20 mg tablet,delayed release (DR/EC) 20 mg PO QDAY Qty: 20 0RF sucralfate [Carafate] 1 gram tablet 1 g PO BID Qty: 14 0RF Referrals: No Primary/Family,Physician [Primary Care Provider] - In 1 week Problem List Clinical Impression: Contusion of rib on right side Patient/Caregiver Discharge Instructions Discharge Activity: activity as tolerated Education Materials: ED Contusion, Rib Additional Instructions: Discharge instructions from Dr. Johnson: -- Unfortunately, you sustained right rib contusions. -- It's going to take a couple of months to heal. -- Try to slowly resume your normal activity despite the pain. Prolonged inactivity is terrible for your body. -- Apply heat throughout the day as much as possible to help promote blood flow needed for healing. -- Ibuprofen and Tylenol and topical lidocaine patches as needed. -- Try propping herself up on pillows. -- Despite the pain, take at least two very deep breaths every hour you are awake.? To keep your lungs inflated. -- See your private doctor next week if not significantly better. -- Seek immediate medical care with intolerable pain, fever, shortness of breath, or with any concerns. Print Language: Turkish Stand Alone Forms: Kayla Award Info., Patient Portal Info Letter
== END 2025-02-07 17:18 | disposition home or self-care (01) ==
PROVIDERS: Emergency Provider Emergency Medicine
DX: S20.211A Contusion of right front wall of thorax, initial encounter (principal); W19.XXXA Unspecified fall, initial encounter
CPT/HCPCS: 71250; 80048; 82150; 83690; 83735; 85025; 99282; J3490